=== PATIENT | female | born 1990 | race Two or more races ===

== ENCOUNTER 2016-03-02 03:34 | Inpatient (IN) | payer OTHER ==
[~2016-03-02] VITALS: Ht 157.5 cm; Wt 73.1 kg
[2016-03-02 04:00] VITALS: BP 130/81; PULSE 70; RESP 20; Ht 157.5 cm; Wt 73.1 kg
[2016-03-02] MEDS ORDERED: LACTATED RINGER'S 1,000 ML IV PRN (04:00)
[2016-03-02] MEDS ORDERED: AMPICILLIN 2 GM/NS (PMX) 100 ML IV ONE (04:00)
[2016-03-02] MEDS ORDERED: OXYTOCIN 30 UNITS/LR 500 ML IV SCH ×2 (04:00)
[2016-03-02] MEDS ORDERED: BUTORPHANOL 2 MG INJ IV PRN (04:00)
[2016-03-02] MEDS ORDERED: OXYTOCIN 30 UNITS/LR 500 ML IV PRN (04:00)
[2016-03-02] MEDS ORDERED: MISOPROSTOL 200 MCG TAB PR PRN (04:00)
[2016-03-02] MEDS ORDERED: METHYLERGONOVINE 0.2 MG INJ IM PRN (04:00)
[2016-03-02] MEDS ORDERED: LIDOCAINE 1% (MPF) 30 ML INJ INJ PRN (04:00)
[2016-03-02] MEDS ORDERED: CARBOPROST 250 MCG INJ IM PRN (04:00)
[2016-03-02] MEDS ORDERED: PREN1TAB62 PO (04:02)
[2016-03-02] MEDS: LACTATED RINGER'S 1,000 ML IV SCH ×2 (04:50→14:34)
[2016-03-02 05:21] LABS: BASOPHIL # 0.1 10^3/ul (0.0-0.1); BASOPHILS % 0.4 % (0.0-2.0); EOSINOPHILS # 0.1 10^3/ul (0.0-0.5); EOSINOPHILS % 0.4 % (0.0-7.0); HEMATOCRIT 38.4 % (37.0-47.0); HEMOGLOBIN 13.1 g/dl (12.0-16.0); LYMPHOCYTES % 15.3 % (15.0-51.0); MEAN CORPUSCULAR HEMOGLOBIN 30.5 pg (29.0-33.0); MEAN CORPUSCULAR HGB CONC 34.2 g/dl (32.0-37.0); MEAN CORPUSCULAR VOLUME 89.2 fl (82.0-101.0); MEAN PLATELET VOLUME 9.9 fl (7.4-10.4); MONOCYTE # 0.7 10^3/ul (0.3-0.9); MONOCYTES % 5.2 % (0.0-11.0); NEUTROPHIL # 10.3 10^3/ul (1.6-7.5); NEUTROPHILS % 78.7 % (39.0-77.0); PLATELET COUNT 201 10^3/UL (140-440); RED BLOOD COUNT 4.31 10^6/ul (4.20-5.40); RED CELL DISTRIBUTION WIDTH 13.3 % (11.5-14.5); UNCORRECTED WBC 13.1 10^3/ul (4.8-10.8); WHITE BLOOD COUNT 13.1 10^3/ul (4.8-10.8)
[2016-03-02 05:25] LABS: INR 1.01; PROTIME 13.3 Sec (12.2-14.2)
[2016-03-02 05:26] LABS: PARTIAL THROMBOPLASTIN TIME 24.3 Sec (25.0-35.0)
[2016-03-02 05:29] LABS: CONDITION 1
[2016-03-02] MEDS ORDERED: FENTAnyl 2MCG/ML-ROPIV 0.2% 100 ML ONE (07:28)
[2016-03-02] MEDS ORDERED: AMPICILLIN 1 GM/NS (PMX) 50 ML IV SCH (08:00)
[2016-03-02] MEDS ORDERED: PROCHLORPERAZINE 10 MG INJ IV PRN (08:30)
[2016-03-02] MEDS ORDERED: morphine 2 MG INJ IV PRN ×2 (08:30)
[2016-03-02] MEDS ORDERED: FENTAnyl 2MCG/ML-ROPIV 0.2% 100 ML BAG EPI SCH (08:30)
[2016-03-02] MEDS ORDERED: KETOROLAC 30 MG INJ IV PRN (08:30)
[2016-03-02] MEDS ORDERED: HYDROmorphONE 1 MG/ML SYG IV PRN ×2 (08:30)
[2016-03-02] MEDS ORDERED: NALOXONE (0.4 MG/ML) INJ IV PRN (08:30)
[2016-03-02] MEDS ORDERED: ONDANSETRON 4 MG INJ IV PRN ×2 (08:30→18:30)
[2016-03-02] MEDS ORDERED: DIPHENHYDRAMINE 50 MG INJ IV PRN (08:30)
[2016-03-02] MEDS ORDERED: ZOLPIDEM 5 MG TAB PO PRN (08:30)
--- NOTE | 2016-03-02 16:34 | LDN ---
Date/Time of Note Date/Time of Note DATE: 03/02/16 TIME: 16:30 Delivery Summary Normal spontaneous vaginal delivery baby girl from OA position shoulder delivered without difficulty baby's body followed cord clamped after stopped pulsation baby handed to the team after nasal oral phalangeal suction placenta spontaneous expulsion inspected complete blood loss 250 mL patient sustained small first-degree perineal laceration which was repaired with 3-0 Vicryl patient transferred to recovery room in good condition Problems: Infant Delivery Information Sex Infant Sex: female Apgars 1 Minute: 9 5 Minute: 9 Suctioning Nose & mouth suctioned at alfa: Yes Umbilical Cord Umbilical cord with: 3 Vessels Cord presentations: nuchal cord Cord Blood was obtained: Yes SHAMAR LOWERY MD Mar 02, 2016 16:34
--- NOTE | 2016-03-02 16:39 | HP ---
Date/Time of Note Date/Time of Note DATE: 03/02/16 TIME: 16:35 OB - History Hx of Present Free Text/Dictation 25 years old [place] female 2 para 1 admitted to [facility] in active labor admission pelvic examination cervical dilatation 5 cm 90% effacement vertex presentation at -1 station patient transferred to labor and delivery room for possible normal delivery She has been under the care of [facility] and her course was not complicated with gestational diabetes or -induced hypertension or any other complications Estimated Due Date: Feb 27, 2016 : 2 Para: 1 Ultrasounds: Normal mid trimester US Obstetrical Complications: None Past Family/Social History * Past Medical, Surgical, Family and Obstetric Histories reviewed from chart. Rubella: immune RPR/VDRL: Negative GBS Status: Negative HBsAG: Negative OB Admission Exam Vital Signs Vital Signs Vital Signs Date Time Temp Pulse Resp B/P Pulse Ox O2 Delivery O2 Flow Rate FiO2 03/02/16 04:00 98.0 70 20 130/81 Room Air Last 72 hours Lab Results CBC & BMP 03/02/16 04:35 SHAMAR LOWERY MD Mar 02, 2016 16:39
--- NOTE | 2016-03-02 16:54 | DELSUM ---
Delivery Summary A-C Datetime Report Generated by CPN: 03/02/2016 16:53 DELIVERY PERSONNEL [employer] Boards Router: Ogbodu, Pepper MATERNAL INFORMATION Delivery Anesthesia: Local; Epidural Medications in Delivery: PITOCIN 30MU Estimated Blood Loss (ml): 250 Placenta Cultured: No Maternal Complications: None LABOR SUMMARY EDC: 02/27/2016 00:00 EDC: 03/02/2016 00:00 No. Babies in Womb: 1 Attempted: No Labor Anesthesia: Epidural LABOR INFORMATION Reason for Induction: Not Applicable Onset of Labor: 03/01/2016 21:30 Complete Dilatation: 03/02/2016 14:40 Oxytocin: N/A Group B Beta Strep: Negative Group B Beta Strep: Done, Result Unknown Antibiotics # of Doses: 0 Antibiotics Time of Last Dose: N/A Steroids Given: None Reason Steroids Not Administered: Not Applicable MEMBRANES Membranes Rupture Method: Artificial Rupture of Membranes: 03/02/2016 08:47 Length of Rupture (hr): 6.40 Amniotic Fluid Color: Clear Amniotic Fluid Amount: Small Amniotic Fluid Odor: Normal STAGES OF LABOR Stage 1 hr: 17 Stage 1 min: 10 Stage 2 hr: 0 Stage 2 min: 31 Stage 3 hr: 0 Stage 3 min: 4 Total Time in Labor hr: 17 Total Time in Labor min: 45 VAGINAL DELIVERY Episiotomy: None Laceration Extension: First Degree Laceration Type: Perineal Other Laceration: LEFT LATERAL LABIAL Laceration Repair: Yes Initial Vag Sponge Count: 20 Final Vag Sponge Count: 20 Initial Vag Sharps Count: 1 Final Vag Sharps Count: 3 Sponge Count Correct: Yes Sharps Count Correct: Yes BABY A INFORMATION Infant Delivery Date/Time: 03/02/2016 15:11 Method of Delivery: Vaginal Method of Delivery: Vaginal Born in Route : No : N/A Forceps: N/A Vacuum Extraction: N/A Shoulder Dystocia : N/A SHOULDER DYSTOCIA BABY A Delivery Date/Time: 03/02/2016 15:11 PRESENTATION/POSITION BABY A Presentation: Cephalic Presentation: Cephalic Cephalic Presentation: Vertex Vertex Position: Left Occipital Anterior Breech Presentation: N/A PLACENTA INFORMATION BABY A Placenta Delivery Time : 03/02/2016 15:15 Placenta Method of Delivery: Spontaneous Placenta Method of Delivery: Spontaneous Placenta Status: Delivered SCORES BABY A Heart Rate 1 min: >100 bpm Resp Effort 1 min: Good Cry Reflex Irritability 1 min: Cough/Sneeze/Pulls Away Muscle Tone 1 min: Active Motion Color 1 min: Body [place], Extremit Blue Resuscitation Effort 1 min: Tactile Stimulation SCORE 1 MIN: 9 Heart Rate 5 min: >100 bpm Resp Effort 5 min: Good Cry Reflex Irritability 5 min: Cough/Sneeze/Pulls Away Muscle Tone 5 min: Active Motion Color 5 min: Body [place], Extremit Blue Resuscitation Effort 5 min: Tactile Stimulation SCORE 5 MIN: 9 INFORMATION BABY A Gestational Age at Delivery: 40.4 Gestational Status: Full Term- 39- 40.6 Weeks Outcome : Liveborn Infant Condition : Stable Sex: Female Sex: Female IDENTIFICATION/MEDS BABY A ID Band Number: [id number] ID Band Location: Right Leg; Left Arm Sensor Applied: Yes Sensor Number: [id number] Sensor Location : Cord Clamp Vitamin K Given : Not Given Erythromycin Given: Not Given WEIGHT/LENGTH BABY A Infant Birthweight (gm): 3885 Weight (lb): 8 Infant Weight (oz): 9 Length (in): 20.00 Length (cm): 50.80 CORD INFORMATION BABY A No. Cord Vessels: 3 Nuchal Cord : Around Neck x1, Loose Cord Blood Taken: Yes Banking/Donate Info: N/A Infant Suction: Mouth; Nose
--- NOTE | 2016-03-02 16:56 | OPRPT ---
Intraop Record Datetime Report Generated by CPN: 03/02/2016 16:55 Datetime: 03/02/2016 04:24 Drug Allergies/Reactions: No Known Allergy (03/02/2016) Datetime: 03/02/2016 03:43 Drug Allergies/Reactions: PT. DENIES Food Allergies/Reactions: PT. DENIES Latex Allergies/Reactions: No Latex Allergies
--- NOTE | 2016-03-02 16:56 | DELSUM ---
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 Babies in Womb: 1 Attempted: No Labor Anesthesia: Epidural LABOR INFORMATION Reason for Induction: Not Applicable Onset of Labor: 03/01/2016 21:30 Complete Dilatation: 03/02/2016 14:40 Oxytocin: N/A Group B Beta Strep: Negative Group B Beta Strep: Done, Result Unknown Antibiotics # of Doses: 0 Antibiotics Time of Last Dose: N/A Steroids Given: None Reason Steroids Not Administered: Not Applicable MEMBRANES Membranes Rupture Method: Artificial Rupture of Membranes: 03/02/2016 08:47 Length of Rupture (hr): 6.40 Amniotic Fluid Color: Clear Amniotic Fluid Amount: Small Amniotic Fluid Odor: Normal STAGES OF LABOR Stage 1 hr: 17 Stage 1 min: 10 Stage 2 hr: 0 Stage 2 min: 31 Stage 3 hr: 0 Stage 3 min: 4 Total Time in Labor hr: 17 Total Time in Labor min: 45 VAGINAL DELIVERY Episiotomy: None Laceration Extension: First Degree Laceration Type: Perineal Other Laceration: LEFT LATERAL LABIAL Laceration Repair: Yes Initial Vag Sponge Count: 20 Final Vag Sponge Count: 20 Initial Vag Sharps Count: 1 Final Vag Sharps Count: 3 Sponge Count Correct: Yes Sharps Count Correct: Yes BABY A INFORMATION Infant Delivery Date/Time: 03/02/2016 15:11 Method of Delivery: Vaginal Method of Delivery: Vaginal Born in Route : No : N/A Forceps: N/A Vacuum Extraction: N/A Shoulder Dystocia : N/A SHOULDER DYSTOCIA BABY A Delivery Date/Time: 03/02/2016 15:11 PRESENTATION/POSITION BABY A Presentation: Cephalic Presentation: Cephalic Cephalic Presentation: Vertex Vertex Position: Left Occipital Anterior Breech Presentation: N/A PLACENTA INFORMATION BABY A Placenta Delivery Time : 03/02/2016 15:15 Placenta Method of Delivery: Spontaneous Placenta Method of Delivery: Spontaneous Placenta Status: Delivered SCORES BABY A Heart Rate 1 min: >100 bpm Resp Effort 1 min: Good Cry Reflex Irritability 1 min: Cough/Sneeze/Pulls Away Muscle Tone 1 min: Active Motion Color 1 min: Body [place], Extremit Blue Resuscitation Effort 1 min: Tactile Stimulation SCORE 1 MIN: 9 Heart Rate 5 min: >100 bpm Resp Effort 5 min: Good Cry Reflex Irritability 5 min: Cough/Sneeze/Pulls Away Muscle Tone 5 min: Active Motion Color 5 min: Body [place], Extremit Blue Resuscitation Effort 5 min: Tactile Stimulation SCORE 5 MIN: 9 INFORMATION BABY A Gestational Age at Delivery: 40.4 Gestational Status: Full Term- 39- 40.6 Weeks Outcome : Liveborn Infant Condition : Stable Sex: Female Sex: Female IDENTIFICATION/MEDS BABY A ID Band Number: [id number] ID Band Location: Right Leg; Left Arm Sensor Applied: Yes Sensor Number: [id number] Sensor Location : Cord Clamp Vitamin K Given : Not Given Erythromycin Given: Not Given WEIGHT/LENGTH BABY A Infant Birthweight (gm): 3885 Weight (lb): 8 Infant Weight (oz): 9 Length (in): 20.00 Length (cm): 50.80 CORD INFORMATION BABY A No. Cord Vessels: 3 Nuchal Cord : Around Neck x1, Loose Cord Blood Taken: Yes Banking/Donate Info: N/A Infant Suction: Mouth; Nose
[2016-03-02 17:59] VITALS: BP 102/62; PULSE 73; RESP 18
[2016-03-02 18:30] VITALS: BP 114/52; PULSE 88; RESP 18
[2016-03-02] MEDS ORDERED: LANOLIN 7 GM TUBE TOP PRN (18:30)
[2016-03-02] MEDS ORDERED: BENZOCAINE 20% 56 ML SPRAY TOP PRN (18:30)
[2016-03-02] MEDS ORDERED: ACETAMINOPHEN 325 MG TAB PO PRN (18:30)
[2016-03-02] MEDS ORDERED: OXYCODONE/ASPIRIN (4.88/325) TAB PO PRN ×2 (18:30)
[2016-03-02] MEDS ORDERED: DIBUCAINE 1% 30 GM OINT PR PRN (18:30)
[2016-03-02] MEDS ORDERED: ACETAMINOPHEN/CODEINE #3 TAB PO PRN ×2 (18:30)
[2016-03-02] MEDS: OXYTOCIN 30 UNITS/LR 500 ML IV SCH ×2 (18:50→22:02)
[2016-03-02] MEDS: WITCH HAZEL/GLYCERIN PAD PR PRN (18:50)
[2016-03-02 20:00] VITALS: BP 123/71; PULSE 85; RESP 20
[2016-03-02] MEDS: SENNA/DOCUSATE NA (8.6MG/50MG) TAB PO SCH (21:19)
[2016-03-03 00:45] VITALS: BP 117/69; PULSE 67; RESP 20
[2016-03-03] MEDS: IBUPROFEN 600 MG TAB PO SCH ×4 (01:00→18:00)
[2016-03-03 04:41] VITALS: BP 114/75; PULSE 69; RESP 20
[2016-03-03 07:58] LABS: BASOPHIL # 0.1 10^3/ul (0.0-0.1); BASOPHILS % 0.4 % (0.0-2.0); EOSINOPHILS # 0.1 10^3/ul (0.0-0.5); EOSINOPHILS % 0.4 % (0.0-7.0); HEMATOCRIT 34.2 % (37.0-47.0); HEMOGLOBIN 11.9 g/dl (12.0-16.0); LYMPHOCYTES # 2.4 10^3/ul (0.8-2.9); LYMPHOCYTES % 16.5 % (15.0-51.0); MEAN CORPUSCULAR HEMOGLOBIN 30.8 pg (29.0-33.0); MEAN CORPUSCULAR HGB CONC 34.9 g/dl (32.0-37.0); MEAN CORPUSCULAR VOLUME 88.2 fl (82.0-101.0); MEAN PLATELET VOLUME 10.8 fl (7.4-10.4); MONOCYTE # 0.8 10^3/ul (0.3-0.9); MONOCYTES % 5.9 % (0.0-11.0); NEUTROPHIL # 10.9 10^3/ul (1.6-7.5); NEUTROPHILS % 76.8 % (39.0-77.0); PLATELET COUNT 169 10^3/UL (140-440); RED BLOOD COUNT 3.88 10^6/ul (4.20-5.40); RED CELL DISTRIBUTION WIDTH 13.6 % (11.5-14.5); UNCORRECTED WBC 14.2 10^3/ul (4.8-10.8); WHITE BLOOD COUNT 14.2 10^3/ul (4.8-10.8)
[2016-03-03 08:00] VITALS: BP 100/56; PULSE 114; RESP 18
[2016-03-03 08:10] LABS: CONDITION 1
[2016-03-03] MEDS: SENNA/DOCUSATE NA (8.6MG/50MG) TAB PO SCH ×2 (09:43→21:49)
--- NOTE | 2016-03-03 14:48 | PN ---
Date/Time of Note Date/Time of Note DATE: 03/03/16 TIME: 14:47 OB Subjective Subjective Subjective Post normal vaginal delivery day 1 Vital sign stable afebrile abdomen soft uterus firm lochia normal extremity normal Laboratory Tests Test 03/03/16 06:15 Basophils # 0.110^3/ul Basophils % 0.4% Blood Morphology Comment Eosinophils # 0.110^3/ul Eosinophils % 0.4% Hematocrit 34.2% Hemoglobin 11.9g/dl Lymphocytes # 2.410^3/ul Lymphocytes % 16.5% Mean Corpuscular Hemoglobin 30.8pg Mean Corpuscular Hemoglobin Concent 34.9g/dl Mean Corpuscular Volume 88.2fl Mean Platelet Volume 10.8fl Monocytes # 0.810^3/ul Monocytes % 5.9% Neutrophils # 10.910^3/ul Neutrophils % 76.8% Nucleated Red Blood Cells # 0.010^3/ul Nucleated Red Blood Cells % 0.0/100WBC Platelet Count 45026^3/UL Red Blood Count 3.8810^6/ul Red Cell Distribution Width 13.6% White Blood Count 14.210^3/ul Current Medications Medications (Trade) Dose Ordered Sig/Marian Route PRN Reason Start Time Stop Time Status Last Admin Dose Admin Lactated Ringer's 1,000 ml @ 125 mls/hr Q8H IV 03/02/16 03:52 03/02/16 18:04 DC 03/02/16 14:34 Ampicillin 100 ml @ 100 mls/hr ONCE ONCE IV 03/02/16 04:00 03/02/16 05:22 DC Ampicillin (Ampicillin 1 Gm/ NS (Pmx)) 50 ml @ 100 mls/hr Q4H IV 03/02/16 08:00 03/02/16 08:00 DC Butorphanol Tartrate (Stadol) 2 mg Q2H PRN IV PAIN 03/02/16 04:00 03/02/16 18:04 DC Lidocaine 30 ml 30 ml ONCE PRN INJ EPISIOTOMY/TEARING 03/02/16 04:00 03/02/16 18:04 DC Oxytocin/Lactated Ringer's 500 ml @ 125 mls/hr ONCE -MAY REPEAT X1 IV 03/02/16 04:00 03/02/16 18:04 DC Oxytocin/Lactated Ringer's 500 ml @ 125 mls/hr ONCE IV 03/02/16 04:00 03/02/16 18:04 DC Lactated Ringer's 1,000 ml @ 2,000 mls/hr Q30M PRN IV PRE-EPIDURAL BOLUS 03/02/16 04:00 03/02/16 18:04 DC 03/02/16 05:49 Oxytocin/Lactated Ringer's 500 ml @ 0 mls/hr ONCE PRN IV For Hemorrhage Management 03/02/16 04:00 03/02/16 18:04 DC Methylergonovine Maleate (Methergine) 0.2 mg ONCE PRN IM VAGINAL BLEEDING 03/02/16 04:00 03/02/16 18:04 DC Carboprost Tromethamine (Hemabate) 250 mcg ONCE PRN IM VAGINAL BLEEDING 03/02/16 04:00 03/02/16 18:04 DC Misoprostol 1000 mcg 1,000 mcg ONCE PRN RI VAGINAL BLEEDING 03/02/16 04:00 03/02/16 18:04 DC Fentanyl/ Ropivacaine 100 ml @ ud STK-MED ONCE .ROUTE 03/02/16 07:28 03/02/16 07:29 DC Naloxone HCl (Narcan) 0.1 mg Q2M PRN IV FOR RESP RATE 8 OR LESS 03/02/16 08:30 03/02/16 18:04 DC Ketorolac Tromethamine (Toradol) 30 mg Q6H PRN IV PAIN 03/02/16 08:30 03/02/16 18:04 DC Morphine Sulfate (morphine) 2 mg Q3H PRN IV PAIN LEVEL 1-5 03/02/16 08:30 03/02/16 18:04 DC Morphine Sulfate (morphine) 4 mg Q3H PRN IV PAIN LEVEL 6-10 03/02/16 08:30 03/02/16 18:04 DC Hydromorphone HCl (Dilaudid) 0.2 mg Q3H PRN IV PAIN LEVEL 1-5 03/02/16 08:30 03/02/16 18:04 DC Hydromorphone HCl (Dilaudid) 0.4 mg Q3H PRN IV PAIN LEVEL 6-10 03/02/16 08:30 03/02/16 18:04 DC Diphenhydramine HCl (Benadryl) 25 mg Q6H PRN IV ITCHING 03/02/16 08:30 03/02/16 18:04 DC Ondansetron HCl (Zofran Inj) 4 mg Q6H PRN IV NAUSEA AND/OR VOMITING 03/02/16 08:30 03/02/16 18:04 DC Prochlorperazine (Compazine Inj) 10 mg ONCE PRN IV NAUSEA AND/OR VOMITING 03/02/16 08:30 03/02/16 18:04 DC Zolpidem Tartrate (Ambien) 5 mg HS MAY REPEAT X 1 PRN PO INSOMNIA 03/02/16 08:30 03/02/16 18:04 DC Fentanyl/ Ropivacaine 100 ml 100 ml EPIDURAL INFUSION EPI 03/02/16 08:30 03/02/16 18:04 DC 03/02/16 14:37 Oxytocin/Lactated Ringer's 500 ml @ 125 mls/hr Q4H IV 03/02/16 18:02 03/03/16 02:01 DC 03/02/16 18:50 Ibuprofen (Motrin) 600 mg Q6 PO 03/03/16 00:00 03/03/16 11:43 Acetaminophen (Tylenol Tab) 650 mg Q4H PRN PO PAIN LEVEL 1-5 03/02/16 18:30 Acetaminophen/ Codeine Phosphate (Tylenol No.3) 1 tab Q4H PRN PO PAIN LEVEL 1-5 03/02/16 18:30 Acetaminophen/ Codeine Phosphate (Tylenol No.3) 2 tab Q4H PRN PO PAIN LEVEL 6-10 03/02/16 18:30 Oxycodone/Aspirin (Percodan) 1 tab Q3H PRN PO PAIN LEVEL 1-5 03/02/16 18:30 Oxycodone/Aspirin (Percodan) 2 tab Q3H PRN PO PAIN LEVEL 6-10 03/02/16 18:30 Ondansetron HCl (Zofran Inj) 4 mg Q6H PRN IV NAUSEA AND/OR VOMITING 03/02/16 18:30 Senna/Docusate Sodium (Senokot-S) 1 tab BID PO 03/02/16 21:00 03/03/16 09:43 Witch Sandra/ Glycerin (Tucks Pads) 1 pad BEDSIDE MEDICATION PRN RI HEMORRHOID/EPISIOTMY PAIN 03/02/16 18:30 03/02/16 18:50 Benzocaine (Dermoplast Egan) 1 spray BEDSIDE MEDICATION PRN TOP HEMORRHOID/EPISIOTMY PAIN 03/02/16 18:30 03/02/16 18:50 Dibucaine (Nupercainal) 1 applic BEDSIDE MEDICATION PRN RI HEMORRHOID/EPISIOTMY PAIN 03/02/16 18:30 Lanolin (Xdt-[id number]-Bspjwv) 1 applic BEDSIDE MEDICATION PRN TOP BEDSIDE FOR MAXWELL TO NIPPLES 03/02/16 18:30 03/02/16 18:51 Measles/Mumps/ Rubella Vaccine Live (Mmr Ii Vaccine) 0.5 ml ONCE ONCE SC* 03/04/16 09:00 03/04/16 09:01 Influenza Virus Vaccine (Fluzone) 0.5 ml ONCE ONCE IM* 03/03/16 19:30 03/03/16 19:31 SHAMAR LOWERY MD Mar 03, 2016 14:48
[2016-03-03 16:00] VITALS: BP 105/65; PULSE 72; RESP 18
[2016-03-03] MEDS ORDERED: INFLUENZA VIRUS VACCINE 0.5 ML SYG IM* ONE (19:30)
[2016-03-03 20:00] VITALS: BP 107/60; PULSE 80; RESP 20
[2016-03-03] MEDS: WITCH HAZEL/GLYCERIN PAD PR PRN (21:49)
[2016-03-04] MEDS: IBUPROFEN 600 MG TAB PO SCH ×2 (00:51→06:03)
[2016-03-04 04:15] VITALS: BP 94/63; PULSE 67; RESP 20
[2016-03-04 08:00] VITALS: BP 98/51; PULSE 70; RESP 18
[2016-03-04] MEDS ORDERED: MEASLES,MUMPS,RUBELLA VACCINE INJ SC* ONE (09:00)
[2016-03-04] MEDS: SENNA/DOCUSATE NA (8.6MG/50MG) TAB PO SCH (10:50)
--- NOTE | 2016-03-04 12:12 | PD.PPDC ---
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
--- NOTE | 2016-03-04 12:16 | DS ---
Date/Time of Note Date/Time of Note DATE: 03/04/16 TIME: 12:14 Obstetrical Discharge Record Final Diagnosis Final Diagnosis: Term delivered Vaginal Delivery Obstetrical Delivery: Spontaneous Condition on Discharge Physical Assessment Last Vitals: Vital sign is stable afebrile abdomen soft uterus firm lochia normal extremity normal patient discharged home recommended follow-up visit to the clinic in 2 weeks Voiding: Yes Bowel Movement: Yes Breast: Filling Fundus: Firm Calf Tenderness: No Patient Condition: Good SHAMAR LOWERY MD Mar 04, 2016 12:15
== END 2016-03-04 16:15 | disposition home or self-care (01) | DRG 775 ==
LOC: L-D 03:34 → OBT 03:34 → L-D 03:45 → OBT 03:45 → L-D 06:28 → PP1 17:37
PROVIDERS: ADMIT Obstetrics & Gynecology; ATTEND Obstetrics & Gynecology
PROC: 10E0XZZ Delivery of Products of Conception, External Approach (ICD-10-PCS; principal; 2016-03-02)
PROC: 0HQ9XZZ Repair Perineum Skin, External Approach (ICD-10-PCS; 2016-03-02)
PROC: 3E00X4Z Introduction of Serum, Toxoid and Vaccine into Skin and Mucous Membranes, External Approach (ICD-10-PCS; 2016-03-04)
DX: O69.81X0 Labor and delivery complicated by cord around neck, without compression, not applicable or unspecified (principal); O70.0 First degree perineal laceration during delivery; Z23 Encounter for immunization; Z3A.38 38 weeks gestation of pregnancy; Z37.0 Single live birth
CPT/HCPCS: 62319; 85025; 85610; 85730; 86592; 86900; 86901; 90686; G0463; J0290; J2590; J3010; J7120